=== PATIENT | male | born 1965 | race African-American/Black ===

== ENCOUNTER 2020-05-11 10:40 | Emergency (ER) | payer MEDICAID ==
[~2020-05-11] VITALS: Ht 180.3 cm; Wt 77.0 kg
[~2020-05-11 10:40] MED LIST: CARB200T6 MT; CARB400T8 PO
[2020-05-11 11:40] LABS: HEMATOCRIT. 41.8 % (42.0-52.0); HEMOGLOBIN. 13.6 g/dL (14.0-18.0); MEAN CORPUSCULAR HEMOGLOBIN 30.5 pg (28.0-32.0); MEAN PLATELET VOLUME 8.4 fl (7.4-10.4); PLATELET 286 x1000/uL (130-400); RED BLOOD CELL COUNT 4.45 mill/uL (4.7-6.1); RED CELL DISTRIBUTION WIDTH 12.9 % (11.6-14.6)
[2020-05-11 11:52] LABS: CHLORIDE 107 mEq/L (98-107)
[2020-05-11 11:56] LABS: ETHANOL BLOOD < 10 mg/dL
[2020-05-11 12:12] LABS: PLATELET ESTIMATE NORMAL
[2020-05-11 13:51] LABS: CLARITY URINE CLOUDY (CLEAR); COLOR URINE YELLOW (YELLOW); KETONES URINE NEGATIVE (NEGATIVE); LEUKOCYTE ESTERASE URINE NEGATIVE (NEGATIVE); NITRITE URINE NEGATIVE (NEGATIVE); OCCULT BLOOD URINE NEGATIVE (NEGATIVE); PH URINE 5.5 (4.5-8.0); PROTEIN URINE 1+ (NEGATIVE); SPECIFIC GRAVITY URINE 1.022 (1.005-1.030); UROBILINOGEN URINE 0.2 E.U./dL (0.2-1.0)
[2020-05-11 14:09] LABS: *AMPHETAMINES SCREEN URINE NEGATIVE (NEGATIVE); *BARBITURATES SCREEN URINE NEGATIVE (NEGATIVE)
[2020-05-11 14:10] LABS: *BENZODIAZEPINES SCREEN URINE PRESUMTIVE POSITIVE (NEGATIVE); *COCAINE SCREEN URINE NEGATIVE (NEGATIVE); CANNABINOID URINE SCREEN PRESUMTIVE POSITIVE (NEGATIVE); METHADONE URINE SCREEN NEGATIVE (NEGATIVE); OPIATES URINE SCREEN NEGATIVE (NEGATIVE); PHENCYCLIDINE URINE SCREEN NEGATIVE (NEGATIVE)
[2020-05-11] MEDS ORDERED: L25 MT ×3 (16:02→16:08)
[2020-05-11 17:00] VITALS: BP 130/88
== END 2020-05-11 18:31 | disposition home or self-care (01) ==
LOC: ER 10:40
DX: R56.9 Unspecified convulsions (principal); Z98.890 Other specified postprocedural states; Z86.73 Personal history of transient ischemic attack (TIA), and cerebral infarction without residual deficits
CPT/HCPCS: 36415; 70450; 80053; 80305; 80320; 81003; 82962; 85025; 93005; 99285; Z7610; G0480

== ENCOUNTER 2022-06-14 17:31 | Inpatient (IN) | payer MEDICAID, OTHER ==
[~2022-06-14] VITALS: Ht 182.9 cm; Wt 80.0 kg
[~2022-06-14 17:31] MED LIST changes: +LAM25 PO; +MIRT-89 PO; +RISP0.2514 MT
[2022-06-14] MEDS ORDERED: LEVETIRACETAM 1000MG PREMIX 100 ML IV ONE (17:45)
[2022-06-14 18:24] LABS: HEMOGLOBIN. 13.2 g/dL (14.0-18.0); MEAN CORPUSCULAR HEMOGLOBIN 31.4 pg (28.0-32.0); MEAN CORPUSCULAR VOLUME 93.1 fL (80.0-94.0); MEAN PLATELET VOLUME 7.6 fl (7.4-10.4); PLATELET 248 x1000/uL (130-400); RED BLOOD CELL COUNT 4.19 mill/uL (4.7-6.1)
[2022-06-14 18:36] LABS: CHLORIDE 108 mEq/L (98-107)
[2022-06-14 18:42] LABS: ETHANOL BLOOD < 10 mg/dL
[2022-06-14 19:15] LABS: PLATELET ESTIMATE NORMAL
[2022-06-15 02:31] VITALS: BP 133/58
== END 2022-06-15 05:02 | disposition left against medical advice (07) | DRG 53 ==
LOC: ER 17:31 → MICUSO 06-15 01:46
PROVIDERS: ADMIT Internal Medicine; ATTEND Internal Medicine
DX: G40.909 Epilepsy, unspecified, not intractable, without status epilepticus (principal); Z53.29 Procedure and treatment not carried out because of patient's decision for other reasons; Z86.73 Personal history of transient ischemic attack (TIA), and cerebral infarction without residual deficits
CPT/HCPCS: 36415; 80053; 80320; 85025; 93005; 99285; J1953; G0480